=== PATIENT | male | born 1935 | race Caucasian/White ===

== ENCOUNTER 2018-03-25 08:52 | Emergency (ER) | payer MEDICARE, OTHER ==
[~2018-03-25] VITALS: Ht 182.9 cm; Wt 74.8 kg
[2018-03-25] MEDS ORDERED: OXYBUTYNIN CHLO15 MG PO (09:31)
--- NOTE | 2018-03-25 12:58 | EKG ---
[facility] [address] [facility] [place] [address] Signed Normal sinus rhythm Left axis deviation T wave abnormality, consider inferior ischemia Abnormal ECG No previous ECGs available Confirmed by SHANNON ROMERO MD ([id number] on 03/25/2018 12:58:04 PM Electronically Signed By: SHANNON ROMERO MD 03/25/18 1258 PATIENT NAME: DONNACORDELL Lind Electrocardiogram DATE OF : 39 PHYSICIAN: SHANNON ROMERO MD REPORT #: [id number] REPORT IS CONFIDENTIAL AND NOT TO BE RELEASED WITHOUT AUTHORIZATION
== END 2018-03-25 12:56 | disposition short-term general hospital (02) ==
LOC: ED 08:52
DX: K92.2 Gastrointestinal hemorrhage, unspecified (principal); N17.9 Acute kidney failure, unspecified; E86.0 Dehydration; R91.8 Other nonspecific abnormal finding of lung field
CPT/HCPCS: 71045; 80053; 83605; 83690; 84484; 85025; 85610; 86850; 86900; 86901; 93005; 93010; 96361; 96374; 96375; 96376; 99285; J2270; J2405; J7030; J7120